=== PATIENT | male | born 1990 | race Two or more races ===

== ENCOUNTER 2019-07-28 07:55 | Inpatient (IN) | payer OTHER ==
[~2019-07-28] VITALS: Ht 165.1 cm; Wt 72.6 kg
[2019-07-28] VITALS (13 sets, daily range): BP systolic 117–154; BP diastolic 69–93
[~2019-07-28 07:55] MED LIST: ceFAZolin sod 2 GM in D5W 110 ML IVPB ONE
[2019-07-28] MEDS ORDERED: LOSARTAN POTASS25 MG ORAL (08:30)
[2019-07-28] MEDS ORDERED: LR 1000ml 1,000 ML IVLG SCH (08:43)
--- NOTE | 2019-07-28 08:44 | Anethesia Preoperative Eval ---
Anesthesia Pre-op PMH/ROS General Date of Evaluation: Jul 28, 2019 Time of Evaluation: 10:08 Anesthesiologist: Chapo ASA Score: ASA 1 Mallampati Score Class I : Soft palate, uvula, fauces, pillars visible Class II: Soft palate, uvula, fauces visible Class III: Soft palate, base of uvula visible Class IV: Only hard plate visible Mallampati Classification: Class I Surgeon: Dirk Diagnosis: Back Pain Surgical Procedure: L 5-S1 Microdisectomy, Hemilaminotomy Anesthesia History: none Family History: no anesthesia problems Allergies: Coded Allergies: No Known Allergies (Unverified , 07/28/19) Medications: see eMAR Patient NPO?: Yes NPO Date: Jul 27, 2019 NPO Time: 1999 Anesthesia Pre-op Phys. Exam Physician Exam Last Vital Signs Date Time Temp Pulse Resp B/P (MAP) Pulse Ox O2 Delivery O2 Flow Rate FiO2 07/28/19 08:39 Room Air 07/28/19 08:31 98.6 88 18 133/92 (106) 98 Constitutional: NAD Neurologic: CN 2-12 intact Cardiovascular: RRR Respiratory: CTA Gastrointestinal: S/NT/ND Airway Exam Mallampati Score: Class I MO: full ROM: full Teeth: intact Anesthesia Pre-op A/P Risk Assessment & Plan Assessment: ASA 1 Plan: GA, SED, GlideScope Go Status Change Before Surgery: No Pre-Antibiotics Dru Grams Ancef IV Given Within 1 Hr of Incision: Yes Time Given: 10:13 Edison Cowan MD Jul 28, 2019 08:44
[2019-07-28] MEDS ORDERED: HYDROcodone/Acetamin 7.5/325 tab ORAL PRN ×3 (08:45→10:15)
[2019-07-28] MEDS ORDERED: Midazolam 2mg/2ml Inj IVP PRN (08:45)
[2019-07-28] MEDS ORDERED: LORazepam Inj 2mg/ml 1ml IV PRN (08:45)
[2019-07-28] MEDS ORDERED: Ketorolac 30mg Inj IV PRN ×2 (08:45)
[2019-07-28] MEDS ORDERED: Atropine Sulfate 0.4mg/ml inj IVP PRN (08:45)
[2019-07-28] MEDS ORDERED: oxyCODONE HCL/Acetaminophen 5/325mg ORAL PRN (08:45)
[2019-07-28] MEDS ORDERED: HYDROcodone/Acetamin 5/325 tab ORAL PRN ×2 (08:45→10:15)
[2019-07-28] MEDS ORDERED: Meperidine 50mg/ml Inj(FOR RIGORS ONLY) IVP PRN (08:45)
[2019-07-28] MEDS ORDERED: Labetalol 5mg/ml 20ml vial IV PRN (08:45)
[2019-07-28] MEDS ORDERED: DiphenhydrAMINE 50mg/ml Inj IVP PRN (08:45)
[2019-07-28] MEDS ORDERED: Acetaminophen (Non formulary) 100 ML IV ONE (08:45)
[2019-07-28] MEDS ORDERED: Metoclopramide 10mg/2ml Inj IVP PRN ×2 (08:45→10:15)
[2019-07-28] MEDS ORDERED: Hydromorphone 0.5mg/0.5ml inj IVP PRN (08:45)
[2019-07-28] MEDS ORDERED: fentaNYL 100 mcg/2 mL IV PRN (08:45)
[2019-07-28] MEDS ORDERED: Dexamethasone 4mg/ml vial ONE (08:46)
[2019-07-28] MEDS ORDERED: Sodium Chloride 10ml vial INJ ONE (08:46)
[2019-07-28] MEDS ORDERED: Lidocaine 1% MPF 10mg/ml 5ml ONE (08:46)
[2019-07-28] MEDS ORDERED: fentaNYL 100 mcg/2 mL IV ONE (08:47)
[2019-07-28] MEDS ORDERED: Vancomycin 1gm vial IVPB ONE (08:53)
[2019-07-28] MEDS ORDERED: Bacitracin 50000 Units Vial ONE (08:54)
[2019-07-28] MEDS ORDERED: Ropivacaine 5mg/ml Vial 30ml INJ ONE (08:54)
[2019-07-28] MEDS ORDERED: Gelfoam Size TOPIC ONE (08:54)
[2019-07-28] MEDS ORDERED: Thrombin 5000 units TOPIC ONE (08:54)
[2019-07-28] MEDS ORDERED: Ketamine 500mg Inj ONE (08:59)
[2019-07-28] MEDS ORDERED: Propofol 1,000mg/ 100ml btl IV ONE (09:00)
[2019-07-28] MEDS ORDERED: Lidocaine 1% Plain 30 ml INJ ONE (09:00)
[2019-07-28] MEDS ORDERED: Zemuron 50mg/5ml Inj IV ONE (09:08)
--- NOTE | 2019-07-28 10:04 | Pre-Procedure Note/Attestation ---
Pre-Procedure Note/Attestation Complete Prior to Procedure Planned Procedure: not applicable Procedure Narrative: L5S1 microdiscectomy right sided Indications for Procedure Pre-Operative Diagnosis: L5s1 herniation Attestation I attest that I discussed the nature of the procedure; its benefits; risks and complications; and alternatives (and the risks and benefits of such alternatives ), prior to the procedure, with the patient (or the patient's legal ambulatory service representative). I attest that, if there was a reasonable possibility of needing a blood transfusion, the patient (or the patient's legal ambulatory service representative) was given the [facility] standardized written summary, pursuant to the Gomez Leah Blood Safety Act ([place] Health and Safety Code # 1645, as amended). I attest that I re-evaluated the patient just prior to the surgery and that there has been no change in the patient's H&P, except as documented below: Trenton Cavazos MD Jul 28, 2019 10:04
--- NOTE | 2019-07-28 10:05 | Brief Operative Note ---
Immediate Post Operative Note Operative Note Chief Complaint: back pain and radiculopathy Pre-op Diagnosis: L5s1 herniation Procedure: L5S1 microdiscectomy right sided Post-op Diagnosis: same as pre-op Findings: consistent w/pre-op dx studies Surgeon: Dirk Emergency Management Consultant: Marilyn Anesthesia: general Specimen: none Complications: none Condition: stable Fluids: IVF Estimated Blood Loss: minimal Drains: none Implant(s) used?: No Trenton Cavazos MD Jul 28, 2019 10:05
[2019-07-28] MEDS ORDERED: HYDROmorphone 1mg/ml Carpuject IVP PRN (10:15)
[2019-07-28] MEDS ORDERED: Naloxone 0.4mg/ml Inj IVP PRN (10:15)
[2019-07-28] MEDS ORDERED: Morphine Sulfate 4mg/ml Inj (IV USE ONLY) IV PRN (10:15)
[2019-07-28] MEDS ORDERED: Milk of Magnesia 30ml Ud ORAL PRN (10:15)
[2019-07-28] MEDS ORDERED: Morphine Sulfate 2mg/ml Inj(IV/IM USE ONLY) IV PRN (10:15)
[2019-07-28] MEDS ORDERED: Chloraseptic Spray 20mL Bottle ORAL PRN (10:15)
[2019-07-28] MEDS ORDERED: Metoprolol 5mg/5ml Inj ONE (10:24)
--- NOTE | 2019-07-28 10:42 | Immediate Post-Op Evaluation ---
Immediate Post-Op Evalulation Immediate Post-Op Evalulation Procedure: L 5-S1 Microdisectomy, Hemilaminotomy Date of Evaluation: Jul 28, 2019 Time of Evaluation: 12:19 IV Fluids: 700 LR Blood Products: 0 Estimated Blood Loss: 25 Urinary Output: 0 Blood Pressure Systolic: 137 Blood Pressure Diastolic: 81 Pulse Rate: 112 Respiratory Rate: 16 O2 Sat by Pulse Oximetry: 100 Temperature (Fahrenheit): 98 Pain Score (1-10): 2 Nausea: No Vomiting: No Complications 0 Patient Status: awake, reacts, patent, extubated, none Hydration Status: adequate Dru Grams Ancef IV Given Within 1 Hr of Incision: Yes Time Given: 10:13 Edison Cowan MD Jul 28, 2019 10:42
[2019-07-28] MEDS ORDERED: Neostigmine 1mg/ml 10ml Inj ONE (11:25)
[2019-07-28] MEDS ORDERED: Glycopyrrolate 0.2mg/ml 1ml Vial ONE (11:25)
--- NOTE | 2019-07-28 12:38 | Diagnostic Imaging Report ---
Indication: Intraoperative imaging COMPARISON: None FINDINGS: Single fluoroscopic crosstable image of the lumbar spine was obtained intraoperatively. Instrument noted posterior to L5-S1 disc. IMPRESSION: Intraoperative imaging as described above
[2019-07-28] MEDS: Dexamethasone 4mg/ml vial IVP SCH ×2 (13:03→17:42)
--- NOTE | 2019-07-28 13:30 | NUR ---
NURSE NOTES: Patient arrived on unit via hospital bed. Stable. Denies pain or SOB. Patient oriented to room, call light, and unit. Patient encouraged to use call light for assistance, verbalized understanding. Surgical dressing clean, dry, and intact. Patient's girlfriend has all belongings. Patient is in bed in locked and lowest position with call light within reach. Will continue to monitor.
[2019-07-28] MEDS: Morphine Sulfate 4mg/ml Inj (IV USE ONLY) IV PRN ×3 (13:34→21:28)
--- NOTE | 2019-07-28 14:36 | NUR ---
NURSE NOTES: Patient voided in urinal. No complaints of burning, pain, or discomfort at this time. Will continue to monitor.
[2019-07-28] MEDS: NS w/KCl 20mEq 1000ml 1,000 ML IV SCH (16:05)
--- NOTE | 2019-07-28 16:32 | NUR ---
P.T NOTE: P.T EVALUATION/TX COMPLETED S/P L-SPINE SURGERY . EDUCATION/INSTRUCTION PROVIDED TO PATIENT RE: SPINAL PRECAUTIONS AND PROPER BODY MECHANICS TO INCORPORATE WITH ADL/FUNCTIONAL ACTIVITIES THRU WRITTEN HANDOUTS AND DEMONSTRATION: PATIENT WITH GOOD VERBALIZATION OF UNDERSTANDING/RETURNED DEMONSTRATION WELL.PATIENT CURRENTLY FUNCTIONING SAFELY AND INDEPENDENTLY WITHIN THE SURGICAL GUIDELINES. SKILLED P.T NO LONGER NEEDED AT THIS TIME. DC P.T SERVICES.
[2019-07-28] MEDS: Docusate 100mg cap ORAL SCH (17:42)
[2019-07-28] MEDS: ceFAZolin sod 1 GM in D5W 55 ML IV SCH (17:42)
--- NOTE | 2019-07-28 19:20 | NUR ---
NURSE NOTES: Report taken from ARTHUR Rasheed. Patient is awake and ambulating room, partner at bedside. A&Ox4. No signs of distress on room air, NC at bedside. Having some minor discomfort and pain central to surgical site, 03/31. Surgical site c/d/i, no further skin issues. IV site c/d/i and patent, running NS+20KCl @100mls/hr. Balderrama was D/C earlier in the day, patient is voiding fine. Bed in lowest position, call light within reach.
--- NOTE | 2019-07-28 19:39 | NUR ---
HAND-OFF: Report given to Messi GIBSON. Patient is stable.
--- NOTE | 2019-07-28 22:30 | Operative Note - Dictated ---
DATE OF OPERATION: 07/28/2019 SURGEON: Trenton Cavazos M.D. CW OPERATOR SURGEON: Christiano Sanders M.D. ANESTHESIOLOGIST: Edison Cowan M.D. ANESTHESIA: General endotracheal anesthesia. PREOPERATIVE DIAGNOSES: 1. Intractable back pain. 2. Intractable leg pain. 3. Worsening radiculopathy. 4. Weakness. 5. Herniated nucleus pulposus, L5-S1 herniation. 6. Neural foraminal stenosis, L5-S1. POSTOPERATIVE DIAGNOSES: 1. Intractable back pain. 2. Intractable leg pain. 3. Worsening radiculopathy. 4. Weakness. 5. Herniated nucleus pulposus, L5-S1 herniation. 6. Neural foraminal stenosis, L5-S1. PROCEDURES PERFORMED: 1. Right-sided L5-S1 microdiscectomy. 2. L5-S1 hemilaminotomy, foraminotomy and medial facetectomy. 3. L5-S1 neural foraminotomy through a transpedicular intraforaminal approach. 4. Use of intraoperative microscope. 5. Supervision and interpretation of intraoperative fluoroscopy. 6. Supervision and interpretation of somatosensory-evoked potential and free running EMG monitoring. EBL: Less than 100 mL. COMPLICATIONS: None. INDICATIONS FOR THE PROCEDURE: The patient presents for intractable back pain and radiculopathy. The patient tried and failed a prolonged course of conservative management, including but not limited to chiropractic therapy, physical therapy, nonsteroidal anti-inflammatory drugs, medication, ice packs as well as epidural injection. Despite these therapies, the patient still developed recalcitrant pain and elected for definitive management in the form of right-sided L5-S1 microdiscectomy, L5-S1 hemilaminotomy, foraminotomy and medial facetectomy, L5-S1 neural foraminotomy through a transpedicular intraforaminal approach. CONSENT: We had a long discussion with the patient regarding definitive surgical treatment options. The patient's MRI demonstrated herniated nucleus pulposus, L5-S1 herniation, neural foraminal stenosis, L5-S1 and as a result, I felt the patient would benefit from the discectomy as well as neural foraminotomy at this level. We had a long discussion with the patient regarding the risks, alternatives, and benefits of surgery. Our description of the risks included a discussion in person as well as a signed consent which detailed all pertinent risks and the procedure itself. Briefly, our discussion included but was not limited to infection, bleeding, pseudarthrosis, spinal cord injury, neurovascular injury, dural tear, CSF leak, neuropathy, paralysis, permanent weakness/drop foot, paresthesias blindness, palsy and weakness. The patient understood there may be a need for revision surgery or additional procedures. Approach related complications including dysphonia, dysphagia, blindness, permanent vocal cord and neural injury, hematoma, swallowing and breathing difficulty. Medical complications including liver, kidney, shock, and cardiopulmonary failure. Anesthesia complications including , swelling. Damage to the musculature, larynx (voice injury or loss),esophagus (throat), trachea, blood vessels and muscles (muscular sprain) and lungs (pneumothorax) during this surgical procedure. Injury to deeper structures may be temporary or permanent. The patient understood these and elected to proceed. A written and verbal consent was given. We discussed the pros and cons of all the alternatives. We discussed the uncertainties associated with the decision. Afterwards I assessed the patients understanding and explored their preferences. All questions were answered and no guarantees were given. Medical clearance was obtained prior to surgery OPERATIVE FINDINGS: A broad-based disc herniation at L5-S1, which encroached on the thecal sac and neural foraminal elements therein. This disc was acute in nature and not calcified. It was mobile and free floating and resected easily. There was also neural foraminal stenosis at L5-S1. At L5-S1 on the right side, there was a large pedunculated disc herniation noted. There was a tear in the posterior longitudinal ligament in three rows. There was egress of herniated nuclear tissue. This was gently probed with a Microsect curette and a soft disc herniation was manipulated and resected. This disc was not calcified whatsoever. This disc was soft and well hydrated. There appeared to be an acute herniation and there was no calcification within the posterior longitudinal ligament whatsoever. The tear itself is approximately 20 degrees cephalad to caudad. DESCRIPTION OF PROCEDURE: Under the benefit of general endotracheal anesthesia and with the assistance of the entire operative team, the patient was moved from the rney onto the operative table in the prone position on a Noah frame. The head was secured and positioned appropriately. Bilateral arms were secured with Gel pads and foam and all bony prominences were padded. The bilateral lower extremity SCD and STIVEN hose were placed for DVT prophylaxis. A surgical timeout was called which corroborated our planned procedure. Preoperative Antibiotics were administered within 30 minutes of the incision for prophylaxis. Decadron was given for preoperative steroids. Using lateral radiography, the operative levels were delineated. An incision was marked based on our interpretation of lateral radiography and afterwards the body was prepped and draped in the usual sterile manner. The family was notified that we were ready to commence surgery and were called in the waiting room hourly for updates An incision was based on our lateral fluoroscopic image to center the incision at the L5-S1 interspace. The wound was prepped and draped in the usual sterile fashion. Using a scalpel a midline incision was taken down through the skin and subcutaneous tissues until the overlying hemilamina of L5-S1 were visualized. Next, using meticulous hemostasis, hemilamotomies were dissected and retractors were placed. Using a Verosee dental, we confirmed placement at the L5-S1 interspace. We next turned our attention to our decompression. A standard hemilaminotomy foraminotomy medial facetectomy was performed at each level in standard fashion using a Midas-Roe type AM8 drill bit, straight and angled curettage, and [place] 4 rongeurs until the lateral thecal sac margin and traversing nerve root was visualized. All remainders of the ligamentum flavum and lateral bony margins were resected in total with angled curettage and Kerr[place] 4 rongeurs until the lateral thecal sac margin and traversing nerve root was visualized and decompressed. We next turned our attention toward our L5-S1 microdiscectomy on the right side. A [place] 4 was used to gently mobilize the thecal sac medially and this was held retracted with a bayonetted nerve root retractor. It was at this point that we noted a large broad-based disc protrusion with encroachment dorsally on the thecal sac neural foraminal contents. A bayonet and nerve root retractor was then placed carefully to retract the thecal sac and a discectomy was performed using a combination of a long handled 15 blade scalpel, downgoing and straight pituitaries and downgoing curettage. Afterward the disc space was irrigated twice with 20 mL of antibiotic-impregnated saline. All loose and free-floating disc fragments were carefully resected with a narrow pituitary. Having been satisfied with our decompression after our discectomy of all neural elements, we next turned our attention to our neural foraminoplasty/foraminotomy. This was performed through a transpedicular intraforaminal approach using an access probe followed by a neuro check device, which confirmed ventral placement of our nerve root. Once we confirmed we were safe, we next turned our attention towards placement of our size 10 file under direct microscopic visualization and under lateral fluoroscopy. Using pre and post reciprocation imaging, we were able to visualize our direct decompression given the reciprocation allowed for re-creation of the neural foraminal arch at L5-S1. Afterwards, hemostasis was obtained with 60 mL of antibiotic-impregnated saline followed by FloSeal and Gelfoam. After sponge and needle count were found to be correct, we next turned our attention to closure. Closure consisted of 1-0 Vicryl in standard interrupted fashion. Zosyn was placed deep to the fascia and superficial to the fascia for antibiotic prophylaxis. Skin closure was performed with 2-0 Vicryl in interrupted fashion followed by a running Monocryl for the skin. Final dressings consisted of Dermabond for the superficial skin, Telfa and Tegaderm. The patient tolerated the procedure well. The patient was extubated after the conclusion of surgery without incident. We discussed the findings of the surgery with the family upon completion of the case. At this point the patient will be transferred to the spine floor for further observation. Trenton Cavazos M.D. DR: MALORIE JOB#: [id number] CC:
[2019-07-29] VITALS: BP 135/82
[2019-07-29] MEDS: Dexamethasone 4mg/ml vial IVP SCH ×2 (00:29→05:42)
[2019-07-29] MEDS: ceFAZolin sod 1 GM in D5W 55 ML IV SCH ×2 (02:15→10:00)
[2019-07-29] MEDS: NS w/KCl 20mEq 1000ml 1,000 ML IV SCH (02:15)
[2019-07-29] MEDS: Morphine Sulfate 4mg/ml Inj (IV USE ONLY) IV PRN (02:20)
--- NOTE | 2019-07-29 07:29 | NUR ---
HAND-OFF: Report given to ARTHUR Blank. Patient is awake and in bed. Endorsed to RN that patient is asking about D/C for today and to call MD.
[2019-07-29 08:00] VITALS: BP 153/93
--- NOTE | 2019-07-29 08:16 | NUR ---
NURSE NOTES: PT IS AXOX4, CALM, STANDING BY BED USING CELLPHONE. PT STATES PAIN 3/10, TOLERABLE. PT IS URINATING, NO BM YET. RN AUSCULTATED ABDOMEN, WITH ACTIVE BOWEL SOUNDS. PT DENIES ANY NAUSEA OR VOMITING. RN LEFT MESSAGE FOR DR CORREA REGARDING PT'S DISCHARGE QUESTIONS AND PT WISHES TO CONTINUE LOSARTAN 25MG PO DAILY. WILL CONTINUE TO MONITOR.
[2019-07-29] MEDS: Docusate 100mg cap ORAL SCH (08:42)
[2019-07-29] MEDS ORDERED: NORCO 10-325 T1 EACH ORAL (09:42)
[2019-07-29 09:43] VITALS: BP 153/93
--- NOTE | 2019-07-29 09:43 | 48 Hour Post Anesthesia Eval ---
Post Anesthesia Evaluation Procedure: L 5-S1 Microdisectomy, Hemilaminotomy Date of Evaluation: Jul 29, 2019 Time of Evaluation: 09:41 Blood Pressure Systolic: 153 0: 93 Pulse Rate: 85 Respiratory Rate: 19 Temperature (Fahrenheit): 98.3 O2 Sat by Pulse Oximetry: 97 Airway: patent Nausea: No Vomiting: No Pain Intensity: 3 Hydration Status: adequate Cardiopulmonary Status: Stable Mental Status/LOC: patient returned to baseline Follow-up Care/Observations: 0 Post-Anesthesia Complications: 0 Follow-up care needed: N/A Edison Cowan MD Jul 29, 2019 09:43
--- NOTE | 2019-07-29 10:24 | NUR ---
NURSE NOTES: RN RECEIVED DISCHARGE ORDER FROM DR CORREA. PT RECEIVED PRESCRIPTION FOR NORCO 10/325 PO Q8H NEEDED FOR PAIN AND CONTINUE HOME MEDS. PT WAS EDUCATED ON NEW PRESCRIPTION AND SIDE EFFECTS. RN RECOMMENDED TAKE STOOL SOFTENER OVER THE COUNTER NEEDED WHEN ON NORCO DUE TO SIDE EFFECT OF CONSTIPATION. PT VERBALIZED UNDERSTANDING. PT PROVIDED ON DR CORREA'S OFFICE AND TELEPHONE NUMBER AND TO CALL ON WEDNESDAY TO SET UP FOLLOW UP APPOINTMENT. PT VERBALIZED UNDERSTANDING. PT'S GIRLFRIEND TO DRIVE PT HOME. IV ACCESS DISCONTINUED. PT EDUCATED NOT TO TAKE OUT DRESSING UNLESS SOILED OR EXCESS DRAINAGE. DR CORREA TO INSPECT DRESSING AT FOLLOW UP. PT WAS DISCHARGED IN STABLE CONDITION.
--- NOTE | 2019-07-29 11:30 | Discharge Summary ---
DATE OF ADMISSION: 07/28/2019 DATE OF DISCHARGE: 07/29/2019 PROCEDURE PERFORMED DURING ADMISSION: L5-S1 microdiscectomy. REASON FOR ADMISSION: Herniated nucleus pulposus, L5-S1. HOSPITAL COURSE/TREATMENT RENDERED: DISCHARGE PHYSICAL EXAMINATION: 1. The patient was ambulating with and without the assistance of physical therapy. 2. Prior to discharge home, incision was clean and dry with minimal swelling. 3. Follows commands. 4. Alert and oriented. 5. Balderrama discontinued, voiding. 6. Incentive spirometer at bedside. 7. IVF hep locked. MOTOR: Demonstrates expected postoperative bulk and tone. Moves biceps, triceps, and deltoid musculature on command. Moves hip flexors, quadriceps, tibialis anterior, EHL, gastrocsoleus musculature on command as well. TREATMENT RENDERED: 1. Daily nursing care. 2. Physical Therapy. 3. Occupational Therapy. 4. Intravenous medications. 5. Oral medications. 6. Daily postoperative examinations by Spine surgery team. CONDITION OF PATIENT ON DISCHARGE: The condition on discharge is stable for discharge to home. DISCHARGE INSTRUCTIONS: Our specific instructions relating to physical activity, medications, diet, and followup care are detailed in our standard operative folder and were given to this patient prior to surgery. We will however summarize these briefly as stated below. Regarding physical activity, we would like the patient to limit their flexion, extension, and rotation. We also require a limitation on their bending, lifting, and twisting. All medication has been called in prior to surgery to their pharmacy of choice. They can resume their regular diet once tolerated. We would like them to shower and limit soaking the wound in a tub/Jacuzzi/the ocean for a period of one month or until the incision is completely healed. We will have them follow up in our office in three weeks' time for their regularly scheduled appointment. They understand to call our office tomorrow to schedule the time for their three week followup appointment. The patient will notify us should they experience any increase in the severity of pain, redness/swelling/ or drainage from their incision. Yoselyn Rodriges JOB#: [id number] CC:
== END 2019-07-29 10:00 | disposition home or self-care (01) | DRG 520 ==
LOC: SDSOVERFLO 07:55 → 3E 14:10
PROC: 01NB0ZZ Release Lumbar Nerve, Open Approach (ICD-10-PCS; principal; 2019-07-28 09:30)
PROC: 0SB40ZZ Excision of Lumbosacral Disc, Open Approach (ICD-10-PCS; principal; 2019-07-28 09:30)
DX: M51.17 Intervertebral disc disorders with radiculopathy, lumbosacral region (principal); M48.07 Spinal stenosis, lumbosacral region; R53.1 Weakness
CPT/HCPCS: 36415; 72020; 76000; 86850; 86900; 86901; 87081; 94003; 94150; J2405; J2710